=== PATIENT | female | born 1970 | race Two or more races ===

== ENCOUNTER 2019-02-18 20:00 | Inpatient (IN) | payer OTHER ==
[~2019-02-18] VITALS: Ht 157.5 cm; Wt 74.8 kg
== END 2019-02-23 10:58 | disposition home or self-care (01) | DRG 621 ==
LOC: SURH 02-19 08:00 → O/R 02-21 06:37 → SURH 02-21 21:47
PROVIDERS: ADMIT Specialist
PROC: 0H0U0ZZ Alteration of Left Breast, Open Approach (ICD-10-PCS; 2019-02-21)
PROC: 0J083ZZ Alteration of Abdomen Subcutaneous Tissue and Fascia, Percutaneous Approach (ICD-10-PCS; principal; 2019-02-21 13:00)
DX: E65 Localized adiposity (principal); N62 Hypertrophy of breast